=== PATIENT | female | born 1995 | race Caucasian/White ===

== ENCOUNTER 2020-09-02 19:15 | Emergency (ER) | payer OTHER, SELFPAY | END 2020-09-02 20:22 | disposition home or self-care (01) | LOC: NAV ERS 19:15 | DX: O9A.211 Injury, poisoning and certain other consequences of external causes complicating pregnancy, first trimester (principal); S62.624A Displaced fracture of middle phalanx of right ring finger, initial encounter for closed fracture; W23.0XXA Caught, crushed, jammed, or pinched between moving objects, initial encounter ==